=== PATIENT | female | born 2000 | race Two or more races ===

== ENCOUNTER 2024-05-11 18:04 | Emergency (ER) | payer MEDICAID ==
[~2024-05-11] VITALS: Ht 180.3 cm; Wt 90.7 kg
[2024-05-11 18:10] VITALS: BP 132/70; PULSE 74; RESP 16; O2SAT 100
[2024-05-11] MEDS ORDERED: ACETAMINOPHEN 325MG TABLET PO ONE (18:30)
[2024-05-11 19:56] VITALS: TEMP 98.4
[2024-05-11] MEDS: ACETAMINOPHEN 325MG TABLET PO NR (19:56)
== END 2024-05-11 20:40 | disposition home or self-care (01) ==
LOC: ER 18:04
DX: S69.91XA Unspecified injury of right wrist, hand and finger(s), initial encounter (principal); V87.8XXA Person injured in other specified noncollision transport accidents involving motor vehicle (traffic), initial encounter; Y93.89 Activity, other specified; Y92.89 Other specified places as the place of occurrence of the external cause; Y99.8 Other external cause status
CPT/HCPCS: 73110; 73130; 99284

== ENCOUNTER 2024-07-26 14:02 | Emergency (ER) | payer MEDICAID, OTHER ==
[~2024-07-26] VITALS: Ht 180.3 cm; Wt 88.0 kg
[2024-07-26 14:09] VITALS: O2SAT 98
[2024-07-26 15:58] LABS: BASOPHILS % 0.4 % (0.0-2.0); EOSINOPHILS % 1.3 % (0.0-5.0); HEMATOCRIT. 39.7 % (36.0-48.0); HEMOGLOBIN. 12.4 g/dL (12.0-16.0); MEAN CORPUSCULAR HEMOGLOBIN 25.2 pg (28.0-32.0); MEAN CORPUSCULAR HGB CONC 31.2 g/dL (31.0-37.0); MEAN CORPUSCULAR VOLUME 80.8 fL (81.0-99.0); MEAN PLATELET VOLUME 8.4 fl (7.4-10.4); MONOCYTES % 8.1 % (2.0-8.0); NEUTROPHILS % 70.2 % (40.0-76.0); PLATELET 296 x1000/uL (130-400); RED BLOOD CELL COUNT 4.91 mill/uL (4.2-5.4); RED CELL DISTRIBUTION WIDTH 16.3 % (11.6-14.6)
[2024-07-26 16:06] LABS: CHLORIDE 106 mEq/L (98-107); SODIUM 139 mEq/L (136-145)
[2024-07-26 16:07] LABS: CALCIUM 9.3 mg/dL (8.7-10.4); CARBON DIOXIDE 27 mEq/L (21-32)
[2024-07-26 16:12] LABS: CREATININE 0.7 mg/dL (0.6-1.0); D-DIMER 0.39 mg/L FEU (<0.50); GLUCOSE 85 mg/dL (70-105); PROTHROMBIN TIME 11.3 sec (9.6-11.0); UREA NITROGEN BLOOD 6 mg/dL (9-23)
[2024-07-26 16:14] LABS: ALANINE AMINOTRANSFERASE 11 IU/L (10-49); ALBUMIN 4.4 g/dL (3.2-4.8); ASPARTATE AMINOTRANSFERASE 21 IU/L (<34); BILIRUBIN DIRECT 0.2 mg/dL (<=3.0)
[2024-07-26 16:15] LABS: BILIRUBIN TOTAL 0.6 mg/dL (0.1-1.0); HCG SCREEN NEGATIVE; PROTEIN TOTAL 7.3 g/dL (6.0-8.3)
[2024-07-26 16:18] LABS: TROPONIN I HIGH SENSITIVITY < 4 ng/L (3.0-34)
[2024-07-26 16:29] LABS: CLARITY URINE CLEAR (CLEAR); COLOR URINE YELLOW (YELLOW); GLUCOSE URINE NEGATIVE (NEGATIVE); KETONES URINE 1+ (NEGATIVE); LEUKOCYTE ESTERASE URINE NEGATIVE (NEGATIVE); NITRITE URINE NEGATIVE (NEGATIVE); OCCULT BLOOD URINE NEGATIVE (NEGATIVE); PH URINE 5.5 (4.5-8.0); PROTEIN URINE NEGATIVE (NEGATIVE); SPECIFIC GRAVITY URINE 1.019 (1.005-1.030); UROBILINOGEN URINE 0.2 E.U./dL (0.2-1.0)
[2024-07-26 17:37] VITALS: BP 109/67; PULSE 75; RESP 18; TEMP 37.11408; O2SAT 100
[2024-07-26] MEDS ORDERED: ALBU18HF2 IH (17:40)
== END 2024-07-26 17:50 | disposition home or self-care (01) ==
LOC: ER 14:02
DX: J06.9 Acute upper respiratory infection, unspecified (principal); I49.9 Cardiac arrhythmia, unspecified
CPT/HCPCS: 36415; 71045; 80048; 80076; 81003; 83880; 84484; 84703; 85025; 85379; 93005; 99285

== ENCOUNTER 2024-10-21 13:49 | Emergency (ER) | payer MEDICAID ==
[~2024-10-21] VITALS: Ht 172.7 cm; Wt 82.0 kg
[~2024-10-21 13:49] MED LIST: ALBU18HF2 IH
[2024-10-21 14:48] VITALS: BP 126/70; PULSE 66; RESP 18; TEMP 98.5; O2SAT 97
[2024-10-21] MEDS ORDERED: AMOX1TAB16 MT (19:00)
[2024-10-21] MEDS ORDERED: IBUP-1525 MT (19:00)
[2024-10-21] MEDS ORDERED: TOPUD MT (19:00)
[2024-10-21] MEDS: TETANUS, DIPHTHERIA, PERTUSSIS VAC/PF 0.5ML (>10YR OLD) IM ONE (19:26)
[2024-10-21] MEDS: ACETAMINOPHEN 325MG TABLET PO ONE (19:28)
[2024-10-21] MEDS: IBUPROFEN 800MG TABLET PO ONE (19:28)
== END 2024-10-21 19:32 | disposition home or self-care (01) ==
LOC: ER 13:49
DX: S41.152A Open bite of left upper arm, initial encounter (principal); J45.909 Unspecified asthma, uncomplicated; Z79.899 Other long term (current) drug therapy; W54.0XXA Bitten by dog, initial encounter; Y93.89 Activity, other specified; Y92.89 Other specified places as the place of occurrence of the external cause; Y99.8 Other external cause status
CPT/HCPCS: 90715; 90471; 99283; Z7610